=== PATIENT | male | born 1980 ===

== ENCOUNTER 2024-03-18 13:59 | Outpatient (CLI) | payer OTHER ==
[~2024-03-18 13:59] MED LIST: LEVAQUIN750 MG PO; TUSICOF LIQUID120 ML PO; TUSSI PRES-B L120 M1 PO; TUSSIORGANIDIN DM PO; ZITHROMAX TRI-500 MG PO; ZYRTEC10 MG PO
== END 2024-03-18 14:06 | disposition home or self-care (01) ==
LOC: SONOGRAMA 13:59
DX: M75.102 Unspecified rotator cuff tear or rupture of left shoulder, not specified as traumatic (principal)